=== PATIENT | male | born 1995 | race Two or more races ===

== ENCOUNTER 2024-08-18 00:18 | Emergency (ER) | payer OTHER, MEDICAID, SELFPAY ==
[2024-08-18 00:19] VITALS: BMI 34.7
--- NOTE | 2024-08-18 01:24 | EKG_ITS ---
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
--- NOTE | 2024-08-18 01:24 | XR_ITS ---
Examination: PA chest single view TECHNIQUE: Upright PA chest single view Date and time: August 18, 2024 0241 hours INDICATIONS: Chest pain and difficulty breathing today. FINDINGS: Suspicious for early left perihilar pneumonia. Normal heart size Right lung clear IMPRESSION: Suspicious for early left perihilar pneumonia
--- NOTE | 2024-08-18 01:24 | PD.EDADULT ---
ED General RME/HPI General Chief complaint: General Adult/Misc Complain Stated complaint: HEADACHE FATIGUE Time Seen by Provider: 08/18/24 01:18 Arrival date/time: 08/18/24 00:18 RME / HPI RME / HPI narrative: Dr. Lopez?s Main ED Evaluation: 28yo male with a history of brain CA (2011), diabetes insipidus, hypothyroidism, adrenal insufficiency, seizures presents to the ED for a chief complaint of a panic attack. Patient states he was at work when he started having a cold feeling in his abdomen, generalized weakness, fatigue, and tingling to his lips, reporting he has these symptoms when he gets a panic attack. Patient states after the episode was over, he developed a headache and felt like he was unable to take a full breathe, so he came in for evaluation. Patient denies any chest pain, N/V or any other associated symptoms. NKA. Related Data Home Medications ?Medication ?Instructions ?Recorded ?Confirmed desmopressin 0.2 mg tablet 0.1 mg PO HS 05/05/23 05/05/23 hydrocortisone 5 mg tablet 5 mg PO HS 05/05/23 05/05/23 hydrocortisone 5 mg tablet 10 mg PO DAILY 05/05/23 05/05/23 levetiracetam 500 mg tablet 500 mg PO BID 05/05/23 05/05/23 (Keppra) levothyroxine 100 mcg tablet 100 mcg PO QDAY 05/05/23 05/05/23 Previous Rx's ?Medication ?Instructions ?Recorded dicyclomine 20 mg tablet 20 mg PO TID #20 tabs 05/05/23 ondansetron 4 mg disintegrating 4 mg PO Q8H PRN nausea and 05/05/23 tablet vomiting #20 tabs Allergies Allergy/AdvReac Type Severity Reaction Status Date / Time No Known Allergies Allergy Verified 05/04/23 23:18 Review of Systems Review of Systems Systems Reviewed: All systems reviewed, normal except as documented ED Exam Narrative Physical exam: GENERAL APPEARANCE: alert and oriented x 4, well-developed, well-nourished, no acute distress VITALS: All vitals were reviewed and the pulse ox is % on room air, which is normal according to my interpretation. HEENT: Normocephalic, atraumatic; pupils equal, round, reactive to light; EOMI; mucous membranes pink, moist; oropharynx clear NECK: Supple LUNGS: CTABL; no wheezes, no rales, no rhonchi HEART: Regular rate, regular rhythm; normal S1, S2; no murmurs ABDOMEN: non distended; normal BS; soft, no tenderness, no guarding, no rebound; no masses, no organomegaly, no hernia BACK: no CVA tenderness EXTREMITIES: atraumatic; no edema NEUROLOGIC: awake; alert and oriented x4; cranial nerves II-XII grossly intact; no focal sensory or motor deficits PSYCHIATRIC: appropriate mood and affect SKIN: warm, dry, normal color; no rashes Course Course Course Narrative: CXR is ordered for determining the etiology of dyspnea. Quality Measures none Orders Category Date Time Status EKG (ED ONLY) *Do not use* NOW Care 08/18/24 01:26 Completed Miscellaneous Nursing Order NOW Care 08/18/24 01:26 Completed EKG (ED Only) Stat Exams 08/18/24 01:24 Draft XR chest 1V portable Stat Exams 08/18/24 01:24 Taken CBC Stat Lab 08/18/24 02:03 Completed CMP [Comprehensive Metabolic Panel] Stat Lab 08/18/24 02:03 Completed Free T4 (Free Thyroxine) Stat Lab 08/18/24 02:03 Completed Vital Signs Vital signs: Vital Signs Temperature 98.2 F 08/18/24 03:20 Pulse Rate 78 08/18/24 03:20 Respiratory Rate 16 08/18/24 03:20 Blood Pressure 123/84 08/18/24 03:20 Pulse Oximetry (%) 98 08/18/24 03:20 Discharge Plan Plan Patient Disposition: HOME (Self Care) Discharge Disposition comment: Stable for discharge home Patient condition on transfer: Stable Prescriptions/Referrals Prescriptions/Med Rec: No Action hydrocortisone 5 mg Tablet 5 mg PO HS hydrocortisone 5 mg Tablet 10 mg PO DAILY Rx Instructions: Am levetiracetam [Keppra] 500 mg Tablet 500 mg PO BID desmopressin 0.2 mg Tablet 0.1 mg PO HS levothyroxine 100 mcg Tablet 100 mcg PO QDAY dicyclomine 20 mg tablet 20 mg PO TID Qty: 20 0RF ondansetron 4 mg tablet,disintegrating 4 mg PO Q8H PRN (Reason: nausea and vomiting) Qty: 20 0RF Referrals: [facility] [Provider Group] - In 1 week Problem List Clinical Impression: Anxiety reaction Patient/Caregiver Discharge Instructions Discharge Activity: activity as tolerated Education Materials: ED Anxiety Reaction Additional Instructions: Please return to the emergency department if you have any worsening or any further medical problems and we will help you. Otherwise you should follow-up with your primary care doctor or in the [facility] within the next several days Print Language: Occitan Stand Alone Forms: [employer] Award Info., Patient Portal Info Letter MDM Narrative MDM hospital course (for use when minimal MDM required): Scribe Attestation: 08/18/24 Brittny Ward am scribing for and in the presence of Dr. Lopez. Clinical Information Provided by: patient Medical Records reviewed [facility] (Per chart review, patient was seen here on 05/05/23 for gastroenteritis.) Meds/Rx considered, not ordered None Labs/Rad/Tests considered, not ordered None Chronic Illness/Social Conditions Explain: History of brain CA (2011), diabetes insipidus, hypothyroidism, adrenal insufficiency, seizures EKG Interpretation EKG #1: EKG Interpretation: EKG done at 0137, NSR, rate of 85, normal axis, no ectopy, no acute ischemia, according to my interpretation. Labs Labs: interpreted by pr Lab(s) Interpretation(s): WBC count is 10.7, CMP is normal, Free T4 is low at 0.66, according to my interpretation. Imaging Imaging interpretation: interpreted by me Imaging Interpretation(s): CXR shows normal cardiac silhouette, normal sharp diaphragmatic edge, no infiltrates, normal costophrenic angles, according to my interpretation. Diagnosis Differential Diagnosis ED Complaint MDM: panic attack, anxiety reaction, hypothyroidism
[2024-08-18 02:13] LABS: Basophils # (Auto) 0.1 Thou/mm3 (0.0-0.2); Basophils % (Auto) 1 % (0-2.5); Eosinophils # (Auto) 0.1 Thou/mm3 (0.0-0.5); Eosinophils % (Auto) 1 % (0-10); Hematocrit 39.2 % (41.0-53.0); Hemoglobin 14.3 g/dL (13.5-16.0); Immature Granulocytes % (Auto) 0 % (0-0); Immature Granulocytes Auto 0.03 Thou/mm3 (0.00-0.00); Lymphocytes # (Auto) 2.3 Thou/mm3 (1.0-4.8); Lymphocytes % (Auto) 21 % (10-50); Mean Corpuscular HGB Conc 36.5 g/dl (31.0-37.0); Mean Corpuscular Hemoglobin 30.2 pg (25.0-35.0); Mean Corpuscular Volume 83 fL (80-100); Monocytes # (Auto) 0.8 Thou/mm3 (0.0-0.8); Monocytes % (Auto) 8 % (0-12); Neutrophils # (Auto) 7.4 Thou/mm3 (1.8-7.7); Neutrophils % (Auto) 69 % (37-80); Nucleated Red Blood Cell % 0 /100 WBC (0); Platelet Count 248 Thou/mm3 (140-440); RDW Standard Deviation 39.4 fL (35.1-43.9); Red Blood Count 4.73 Miln/mm3 (4.50-5.90); White Blood Count 10.7 Thou/mm3 (3.8-10.6)
[2024-08-18 02:34] LABS: Alanine Aminotransferase 31 U/L (10-49); Albumin, Serum 4.9 gm/dL (3.5-5.0); Albumin/Globulin Ratio 1.8 (1.2-2.2); Alkaline Phosphatase 98 U/L (46-116); Anion Gap 8 (7-16); Aspartate Amino Transferase 30 U/L (0-34); BUN/Creatinine Ratio 6 Ratio (12-20); Bilirubin,Total 0.8 mg/dL (0.3-1.2); Blood Urea Nitrogen 7 mg/dL (9-23); Calcium 9.5 mg/dL (8.3-10.6); Calcium (Corrected) 9.5 mg/dL (8.5-10.1); Carbon Dioxide 27.6 mMol/L (20.0-31.0); Chloride 100 mMol/L (98-107); Creatinine (Component) 1.2 mg/dL (0.6-1.3); Estimated Creatinine Clearance 88.7 mL/min (>60); Free T4 (Free Thyroxine) 0.66 ng/dL (0.89-1.76); Globulin 2.7 gm/dL (2.3-3.5); Glucose 97 mg/dL (74-106); Osmolality,Calculated 269 (275-295); Potassium 4.1 mMol/L (3.4-5.1); Sodium 136 mMol/L (136-145); Total Protein 7.6 gm/dL (5.7-8.2); eGFR > 60 See Note
[2024-08-18 03:20] VITALS: BP 123/84; PULSE 78; RESP 16; TEMP 36.8; O2SAT 98
== END 2024-08-18 03:22 | disposition home or self-care (01) ==
PROVIDERS: Emergency Provider Emergency Medicine
DX: F41.1 Generalized anxiety disorder (principal); E03.9 Hypothyroidism, unspecified; E23.2 Diabetes insipidus; R07.9 Chest pain, unspecified
CPT/HCPCS: 36415; 71045; 80053; 84439; 85025; 93005; 99283